=== PATIENT | female | born 1995 | race Caucasian/White ===

== ENCOUNTER 2018-03-18 18:52 | Emergency (ER) | payer OTHER ==
[~2018-03-18] VITALS: Ht 162.6 cm; Wt 63.6 kg
[2018-03-18 18:55] VITALS: BP 122/61; TEMP 98.5
[2018-03-18 21:20] VITALS: PULSE 101
== END 2018-03-18 21:20 | disposition home or self-care (01) ==
LOC: COL.ER 18:52
DX: S93.402A Sprain of unspecified ligament of left ankle, initial encounter (principal); X50.0XXA Overexertion from strenuous movement or load, initial encounter; Y92.830 Public park as the place of occurrence of the external cause; Y93.39 Activity, other involving climbing, rappelling and jumping off